=== PATIENT | female | born 2000 | race Caucasian/White ===

== ENCOUNTER 2023-04-16 20:47 | Emergency (ER) | payer OTHER ==
[~2023-04-16 20:47] MED LIST: Iopamidol 300 61% 100 ML VIAL FS ONE
[2023-04-16] MEDS ORDERED: Ondansetron PF 4 MG/2 ML Vial ONE (21:11)
[2023-04-16 21:34] LABS: Bilirubin Neg (Negative); Blood, Urine 150 (Negative); Clarity Clear (Clear); Glucose, Urine (Dipstick) Normal (Negative); Ketone, Urine 150 mg/dL (Negative); Leukocyte 25 (Negative); Nitrite Negative (Negative); Protein, Urine (Dipstick) 30 mg/dl (Neg-Trace); Specific Gravity, Urine 1.015 (1.005-1.030); Urobilinogen Normal mg/dL (Less than 2); pH, Urine 6.5 (5.0-9.0)
[2023-04-16 21:45] LABS: BHCG - Serum Negative (NEGATIVE); Pregs Control Background? CLEAR/WHITE (CLR/WHITE); Pregs Control Bar Appear? YES (CONTROL BAR)
[2023-04-16 21:53] LABS: ALT (SGPT) 14 U/L (8-55); AST (SGOT) 23 U/L (5-34); Albumin 5.2 g/dL (3.5-5.0); Alkaline Phosphatase 47 U/L (40-110); Anion Gap 20 mmol/L (10-20); BUN (Urea Nitrogen) 9 mg/dL (7.0-18.7); Bilirubin, Total 1.5 mg/dL (0.2-1.2); Calc. Creatinine Clearance 0 mL/min (70-130); Calcium 9.9 mg/dL (7.8-10.44); Carbon Dioxide 16 mmol/L (22-29); Chloride 106 mmol/L (98-107); Estimated GFR 103; Globulin 3.3 g/dL (2.4-3.5); Glucose 104 mg/dL (70-105); Lipase 17 U/L (8-78); Magnesium 1.7 mg/dL (1.6-2.6); Potassium 3.2 mmol/L (3.5-5.1); Protein, Total 8.5 g/dL (6.0-8.3); Sodium 139 mmol/L (136-145)
[2023-04-16] MEDS ORDERED: Ketorolac Tromethamine 30 MG/ML VIAL ONE (21:54)
[2023-04-16 21:58] LABS: Bacteria/HPF Rare-Few HPF (None Seen); CAUTI Indications for Culture Dysuria,urgency,freq; Squamous Epithelial 0-3 HPF (0-3)
[2023-04-16 21:59] LABS: Urine Culture Reflex No No
[2023-04-16 21:59] LABS: Hematocrit 39.5 % (34.9-44.5); Hemoglobin 14.1 g/dL (12.0-15.5); Mean Corpuscular Volume 92.1 fl (81.6-98.3); Red Blood Cell (RBC) Count 4.29 10x6/uL (3.90-5.03); White Blood Cell (WBC) Count 19.2 10x3/uL (3.5-10.5)
[2023-04-16 22:00] LABS: #Monocytes 0.5 10x3/uL (0.0-1.1); #Neutrophils 17.8 10x3/uL (1.5-8.4); %Basophils 0.2 % (0.0-2.0); %Eosinophils 0.2 % (0.0-6.0); %Monocytes 2.3 % (0.0-10.0); Mean Corpuscular HGB CONC 35.7 g/dL (32.0-36.0); Mean Corpuscular Hemoglobin 32.9 pg (27.0-33.0); Mean Platelet Volume 10.3 fl (7.4-10.4); Platelet Count 317 10x3/uL (150-450); RBC Distribution Width 11.8 % (11.5-14.5)
[2023-04-16] MEDS ORDERED: Haloperidol Lactate 5 MG/ML VIAL ONE (22:08)
== END 2023-04-16 23:29 | disposition home or self-care (01) ==
LOC: CSHERS 20:47
DX: R11.2 Nausea with vomiting, unspecified (principal); R19.7 Diarrhea, unspecified
CPT/HCPCS: 74177; 80053; 81001; 83690; 83735; 84703; 85025; 96361; 96374; 96375; J1630; J1885; J2405; Q9967